=== PATIENT | female | born 1995 | race Caucasian/White ===

== ENCOUNTER → 2017-11-16 | Outpatient (CLI) | payer OTHER | END | disposition home or self-care (01) | LOC: CFH 12:24 | PROVIDERS: ATTEND Registered Nurse Registered Nurse First Assistant | DX: M51.36 Other intervertebral disc degeneration, lumbar region (principal); M41.86 Other forms of scoliosis, lumbar region | CPT/HCPCS: 72082; 72114; 72148 ==

== ENCOUNTER 2018-07-19 16:45 | Emergency (ER) | payer OTHER ==
[~2018-07-19] VITALS: Ht 172.7 cm; Wt 55.0 kg
[2018-07-19] MEDS ORDERED: ONDANSETRON ODT 4 MG PO ONE (17:00)
[2018-07-19] MEDS ORDERED: ONDANSETRON ODT 4 MG ONE (17:01)
--- NOTE | 2018-07-19 17:05 | NUR ---
TRIAGE NOTE: UNABLE TO OBTAIN ORAL TEMP, AXILLARY TEMP 96.8. PT MEDICATED PER EMAR, EMESIS X 1 IN TRIAGE PRIOR TO ZOFRAN ADMIN. EMESIS YELLOW/GREEN COLORED.
--- NOTE | 2018-07-19 17:20 | NUR ---
CASHIER PAYMENTS RECEIVED: PT TO ROOM FROM [facility]
[2018-07-19] MEDS ORDERED: BIRTH CONTROL PILL (17:38)
[2018-07-19 17:39] LABS: BASOPHILS # (AUTO) 0.03 x10^3/uL (0-0.1); BASOPHILS % (AUTO) 0 % (0-1); EOSINOPHILS % (AUTO) 0 % (1-7); LYMPHOCYTES # (AUTO) 0.89 x10^3/uL (1-3.4); LYMPHOCYTES % (AUTO) 6 % (22-44); MD NO; MEAN CORPUSCULAR HEMOGLOBIN 30.7 pg (27.0-34.8); MEAN CORPUSCULAR HGB CONC 33.8 g/dL (32.4-35.8); MEAN CORPUSCULAR VOLUME 90.7 fL (80-100); MEAN PLATELET VOLUME 8.8 fL (7.4-10.4); MONOCYTES # (AUTO) 0.41 x10^3/uL (0.2-0.8); MONOCYTES % (AUTO) 3 % (2-9); NEUTROPHILS # (AUTO) 13.92 x10^3/uL (1.8-6.8); NEUTROPHILS % (AUTO) 91 % (42-75); PLATELET COUNT 288 x10^3/uL (130-400); RED BLOOD COUNT 5.12 x10^6/uL (3.82-5.3); RED CELL DISTRIBUTION WIDTH 13.2 % (9.6-15.2)
--- NOTE | 2018-07-19 17:39 | NUR ---
PT RESTING ON GURNEY. BLANKET PROVIDED. PT RESPORTS NAUSEA AND VOMITTING THAT STARTED THIS MORNING AND HAS GOTTEN WORSE THROUGHOUT THE DAY. PT WENT TO [facility] WHERE THEY GAVE HER IM PHENERGAN BUT THE NAUSEA AND VOMITTING PERSISTED. DENIES DIARRHEA. AFEBRILE.
[2018-07-19 17:52] LABS: ALANINE AMINOTRANSFERASE 34 U/L (12-78); ALBUMIN 4.3 g/dL (3.4-5.0); ANION GAP 14 mmol/L (5-15); CALCIUM 9.7 mg/dL (8.5-10.1); CHLORIDE 109 mmol/L (98-107)
[2018-07-19 17:57] LABS: ALKALINE PHOSPHATASE 57 U/L (45-117); BILIRUBIN,TOTAL 1.1 mg/dL (0.2-1.0); CREATININE 1.11 mg/dL (0.55-1.02); TOTAL PROTEIN 8.1 g/dL (6.4-8.2)
[2018-07-19] MEDS ORDERED: ONDANSETRON 2MG/ML, 2ML IVPush ONE (18:00)
[2018-07-19] MEDS ORDERED: SODIUM CHLORIDE 0.9% 1,000ML IVBOLUS ONE (18:00)
[2018-07-19] MEDS ORDERED: SODIUM CHLORIDE 0.9% 1,000 ML IV ONE (18:00)
[2018-07-19] MEDS ORDERED: SODIUM CHLORIDE FLUSH 10ML SYR IVF ONE (18:00)
--- NOTE | 2018-07-19 18:34 | NUR ---
PIV placed. pt tolerated procedure well. iv fluid hydration provided. pt reports no nausea and this time and has decline anti-nausea medications. pt resting on gurney. blanket provided. no requests at this time. no acute distress noted.
--- NOTE | 2018-07-19 18:40 | NUR ---
pt to ct
[2018-07-19] MEDS ORDERED: OMNIPAQUE 350 MG/ML, 100ML BOTTLE ONE (18:59)
--- NOTE | 2018-07-19 19:08 | NUR ---
PT RESTING CALMLY, MONITORS IN PLACE, CALL LIGHT WITHIN REACH. CHART UP FOR RECHECK
--- NOTE | 2018-07-19 19:38 | NUR ---
PT RESTING CALMLY, DENIES NAUSEA AT THIS TIME, IV FLUIDS INFUSING, MONITORS IN PLACE, CALL LIGHT WITHIN REACH
[2018-07-19 19:39] VITALS: BP 127/80
== END 2018-07-19 21:09 | disposition home or self-care (01) ==
LOC: ED 20:14
DX: R11.2 Nausea with vomiting, unspecified (principal); E86.0 Dehydration; R10.9 Unspecified abdominal pain
CPT/HCPCS: 36415; 74177; 80053; 83690; 84703; 85025; 96360; 96361; 99284; J7030; Q0162; Q9967